=== PATIENT | male | born 1960 | race Caucasian/White ===

== ENCOUNTER 2020-09-30 09:46 | Outpatient (CLI) | payer OTHER, SELFPAY ==
--- NOTE | 2020-10-01 07:51 | P.PCNPFT_ITS ---
PFT Interpretation This is a pulmonary function test with pre and post-bronchodilator spirometry, plethysmography and diffusing capacity. The test was performed and results interpreted in accordance with the 2019 and 2005 ATS/ERS Task Force guidelines respectively using the Global Lung Function Initiative-2012 reference equations. Patient demonstrated good effort and c ooperation. Reproducibility criteria were met. The quality of the pre bronchodilator spirometry maneuver was Grade A and post bronchodilator spirometry maneuver was Grade A. Findings: Spirometry: the contour the inspiratory and expiratory flow tracing are normal. The pre bronchodilator FVC is 4.50 L, 83% predicted. The pre bronchodilator FEV1 is 3.33 L, 80% predicted. The FEV1: FVC ratio was 74%. The post bronchodilator FVC is 4.68 L, representing a 4% increase. The post bronchodilator FEV1 is 3.66 L, representing a 10% increase. Plethysmography: The total lung capacity 7.09 L, 91% predicted. Functional residual capacity is 3.51 L, represent 85% predicted. The residual volume is 2.43 L, 100% predicted. Diffusing capacity: The absolute diffusion capacity is 24.8, 81% predicted. The diffusing capacity corrected for alveolar volume is 4.08, 100% predicted. Impression: The spirometry is normal without evidence of an obstructive abnormality. There is no significant improvement after inhaling a single dose of albuterol. The lung volumes are normal. The diffusing capacity is normal. There are no prior studies for comparison
== END 2020-09-30 09:47 | disposition home or self-care (01) ==
LOC: ANHPFT 09:47
PROVIDERS: PCP Family Medicine; Visit Provider Family Medicine
DX: R06.00 Dyspnea, unspecified (principal)
CPT/HCPCS: 94060; 94726; 94729